=== PATIENT | male | born 1945 | race Two or more races ===

== ENCOUNTER 2022-12-10 04:50 | Inpatient (IN) | payer MEDICARE, OTHER ==
[~2022-12-10] VITALS: Ht 165.1 cm; Wt 77.1 kg
--- NOTE | 2022-12-10 05:04 | NUR ---
[id number] FRM HOME FOR GEN WEAKNESS AND GLFX2 , RECENT UTI. PRIMARILY SYRIAC SPEAKING. AXO3
--- NOTE | 2022-12-10 05:22 | NUR ---
IV STARTED ON R AC 20G
--- NOTE | 2022-12-10 05:22 | NUR ---
PT WHEEL TO CT VIA ANA M
[2022-12-10 06:11] LABS: BASOPHILS # (AUTO) 0.1 K/uL (0.0-0.2); BASOPHILS % (AUTO) 0.6 % (0.0-2.0); EOSINOPHILS % (AUTO) 0.1 % (0.0-6.0); HEMATOCRIT 38 % (39-51); HEMOGLOBIN 12.1 g/dL (13.5-17.5); LYMPHOCYTES # (AUTO) 2.1 K/uL (0.8-4.8); MEAN CORPUSCULAR HGB CONC 32 g/dl (31.0-36.0); MEAN CORPUSCULAR VOLUME 83 fL (80-96); MONOCYTES # (AUTO) 1.5 K/uL (0.1-1.30); MONOCYTES % (AUTO) 14.1 % (2.0-12.0); NEUTROPHILS # (AUTO) 6.8 K/uL (1.8-8.9); NEUTROPHILS % (AUTO) 65.2 % (43.0-81.0); PLATELET COUNT (AUTO) 298 K/uL (150-450); RED BLOOD CELL COUNT(AUTO) 4.51 MIL/uL (4.5-6.0); WHITE BLOOD COUNT (AUTO) 10.5 K/uL (4.3-11.0)
--- NOTE | 2022-12-10 06:20 | NUR ---
URINE COLLECTED AND SENT TO LAB
[2022-12-10 06:28] LABS: ALANINE AMINOTRANSFERASE 22 U/L (12-78); ALBUMIN 3.9 g/dL (3.4-5.0); ALKALINE PHOSPHATASE 111 U/L (46-116); ASPARTATE AMINOTRANSFERASE 23 U/L (15-37); BILIRUBIN,DIRECT 0.1 mg/dL (0.0-0.2); BILIRUBIN,TOTAL 0.4 mg/dL (0.2-1.0); CARBON DIOXIDE 26 mmol/L (21-32); CHLORIDE 97 mmol/L (98-107); CREATININE 0.9 mg/dL (0.6-1.3); GLUCOSE 220 mg/dL (74-106); POTASSIUM 3.6 mmol/L (3.5-5.1); SODIUM SERUM 136 mmol/L (136-145); TOTAL PROTEIN, SERUM 8.8 g/dL (6.4-8.2); UREA NITROGEN, BLOOD 15 mg/dL (7-18)
[2022-12-10 06:31] LABS: BILIRUBIN,URINE NEGATIVE (NEGATIVE); COLOR,URINE YELLOW (YELLOW); LEUKOCYTE ESTERASE ,URINE 2+ (NEGATIVE); NITRITE, URINE POSITIVE (NEGATIVE); PROTEIN,URINE 2+ mg/dl (NEGATIVE); UGLUCOSE NEGATIVE (NEGATIVE); UROBILINOGEN,URINE 0.2 EU/dL (0.2)
[2022-12-10 06:43] LABS: BACTERIA,URINE 3+ /HPF (None Seen); WBC,URINE TOO NUMEROUS TO COUN /HPF (0-3)
[2022-12-10 06:44] LABS: MUCUS,URINE Few /LPF (None Seen)
[2022-12-10] MEDS ORDERED: CEFTRIAXONE 1GM BAG (ER ONLY) 1 GM/50 ML PIGGYBACK IV ONE (07:00)
--- NOTE | 2022-12-10 07:15 | NUR ---
RECEVED PT FROM [facility] PT AWAKE AND ALERT NO SOB OR DISTTRESS
[2022-12-10] MEDS ORDERED: CEFTRIAXONE 1GM BAG (ER ONLY) 50 ML IV ONE (07:22)
--- NOTE | 2022-12-10 07:27 | NUR ---
COVID ANTIGEN SWAB COLLECTED AND SENT TO LAB
[2022-12-10] MEDS ORDERED: IV NS 0.9% 1,000 ML IV ONE (07:30)
--- NOTE | 2022-12-10 08:08 | NUR ---
AND DAUGHTER AT BEDSIDE. DAUGHTER - SANTIAGO
--- NOTE | 2022-12-10 08:39 | NUR ---
[facility] CALLED PHLEBOTOMIST PRN PAGED.
--- NOTE | 2022-12-10 08:42 | NUR ---
GOT BED 325-1 ADMITTING INFORMED.
--- NOTE | 2022-12-10 08:46 | NUR ---
WATING FOR ROOM
--- NOTE | 2022-12-10 09:08 | NUR ---
report given to DANNIELLE Nix for continuation of care
--- NOTE | 2022-12-10 09:12 | NUR ---
mrsa swab taken and sent to lab
[2022-12-10] MEDS ORDERED: ZOLPIDEM TARTRATE 5 MG TABLET PO PRN (10:00)
[2022-12-10] MEDS ORDERED: Z GUARD REMEDY 4 OZ OINT TP PRN (10:00)
[2022-12-10] MEDS ORDERED: MAG HYDROX/AL HYDROX/SIMETH 30 ML UDC PO PRN (10:00)
[2022-12-10] MEDS ORDERED: MAGNESIUM HYDROXIDE 30 ML UDC PO PRN (10:00)
[2022-12-10] MEDS ORDERED: ACETAMINOPHEN 325 MG TABLET PO PRN (10:00)
[2022-12-10] MEDS ORDERED: ONDANSETRON HCL/PF 4 MG/2 ML VIAL IVP PRN (10:00)
[2022-12-10] MEDS ORDERED: CEFTRIAXONE 1 G in IV D5W 50 ML IV SCH (10:00)
[2022-12-10] MEDS: IV NS 0.9% 1,000 ML IV PRN (10:31)
[2022-12-10] MEDS ORDERED: SITA100T PO (10:38)
[2022-12-10] MEDS ORDERED: METF-442 PO (10:38)
[2022-12-10] MEDS ORDERED: DULA0.75 SQ (10:38)
[2022-12-10] MEDS ORDERED: GEMF600T90 PO (10:38)
--- NOTE | 2022-12-10 10:44 | NUR ---
RN NOTES PATIENT WITH DIABETES MELLITUS, INFORMED CAFETERIA CLERK AISHA IF SHE WANTS PATIENT TO BE PLACED OM ACCUCHECK WITH INSULIN COVERAGE. SHE SAID TO PUT PATIENT ON MODERATE SCALE. ORDERED CARRY OUT.
[2022-12-10] MEDS ORDERED: DEXTROSE 50%-WATER 50 ML DISP.SYRIN IV PRN (11:00)
[2022-12-10] MEDS: LINAGLIPTIN 5 MG TABLET PO SCH (11:17)
[2022-12-10] MEDS: INSULIN REGULAR, HUMAN 100 UNIT/ML 3 ML VIAL SQ PRN ×2 (11:59→17:03)
[2022-12-10] MEDS: BLOOD SUGAR DIAGNOSTIC 1 EACH STRIP VI SCH ×3 (11:59→22:08)
--- NOTE | 2022-12-10 12:08 | NUR ---
MS THREADING MACHINE OPERATOR NOTES PT ADMITTED TO UNIT VIA RNEY AT 0940 WITH DIAGNOSIS OF UTI FAILED OUTPATIENT TX. PT IS A/O X2-3. FRENCH SPEAKING. ABLE TO MAKE NEEDS KNOWN, DENIES PAIN AT THIS TIME. PT ORIENTED TO STAFF, UNIT AND ROOM. V/S TAKEN AND RECORDED. PT ON ROOM AIR, TOLERATING WELL, BREATHING EVEN AND UNLABORED. SKIN IS INTACT. IV ACCESS ON RAC #20G INTACT AND PATENT, IVF OF NS @ 90ML/HR STARTED PER MD ORDER. LUNGS CLEAR ON AUSCULTATION. ABDOMEN SOFT, NON-TENDER WITH POSITIVE BOWEL SOUNDS PRESENT. SAFETY PRECAUTIONS IMPLEMENTED: BED IN LOWEST LOCKED POSITION, SIDE RAILS UP X3, CALL LIGHT AND TRAY TABLE WITHIN EASY REACH OF PT. WILL CONTINUE TO MONITOR PT.
[2022-12-10] MEDS: GEMFIBROZIL 600 MG TABLET PO SCH (16:19)
--- NOTE | 2022-12-10 18:33 | NUR ---
MS RN CLOSING NOTES PT IN BED AWaKE AND RESTING AT SEMI-MAZA'S POSITION. A/O X2-3. MALDIVIAN SPEAKING WITH PERIODS OF FORGETFULNESS NOTED. ON ROOM AIR, TOLERATING WELL, BREATHING EVEN AND UNLABORED, NO ACUTE DISTRESS NOTED. IV ACCESS ON RAC #20G INTACT WITH IVF OF NS @ 90ML/HR INFUSING WELL, NO S/S OF INFILTRATION NOTED. ALL NEEDS AND CARE PROVIDED WELL. SAFETY PRECAUTIONS KEPT IN PLACE: BED IN LOWEST LOCKED POSITION, SIDE-RAILS UP X3, CALL LIGHT AND TRAY TABLE WITHIN EASY REACH OF PT. WILL ENDORSE JENNY TO CONSTITUTIONAL LAW PROFESSOR NURSE.
--- NOTE | 2022-12-10 19:45 | NUR ---
RN Opening Notes Received pt in bed, awake, laying in bed comfortably. AOx3, able to make needs known. On RA and tolerating well. No SOB noted. No s/sx of respiratory distress noted. IV access in RAC #20G running NS @ 90 mL/hr. Safety precautions in place: bed in lowest, locked position, siderails upX2, and brakes on. Table and call light within reach. All needs met at this time.
[2022-12-10 20:00] VITALS: BP 106/111
[2022-12-10] MEDS: *INSULIN REGULAR(HUMULIN R)HUM 100 UNIT/ML VIAL SQ PRN (22:11)
[2022-12-11] MEDS: IV NS 0.9% 1,000 ML IV PRN (00:50)
[2022-12-11] MEDS: BLOOD SUGAR DIAGNOSTIC 1 EACH STRIP VI SCH ×4 (06:32→22:00)
[2022-12-11] MEDS: INSULIN REGULAR, HUMAN 100 UNIT/ML 3 ML VIAL SQ PRN ×3 (06:35→17:11)
--- NOTE | 2022-12-11 06:42 | NUR ---
RN Closing Notes Pt in bed, asleep, awakens to verbal stimuli. AOx3, able to make needs known. On RA and tolerating well. No SOB noted. No s/sx of respiratory distress noted. IV access in RAC #20G running NS @ 90 mL/hr. All orders carried out. All needs met. Pt kept clean and dry. Safety precautions in place: bed in lowest, locked position, siderails upX2, and brakes on. Table and call light within reach. Will endorse to oncoming shift for JENNY.
[2022-12-11 06:52] LABS: EOSINOPHILS % (AUTO) 0.1 % (0.0-6.0); HEMOGLOBIN 10.7 g/dL (13.5-17.5); WHITE BLOOD COUNT (AUTO) 9.7 K/uL (4.3-11.0)
[2022-12-11 06:59] LABS: BASOPHILS % (AUTO) 0.4 % (0.0-2.0); HEMATOCRIT 32 % (39-51); LYMPHOCYTES # (AUTO) 1.6 K/uL (0.8-4.8); LYMPHOCYTES % (AUTO) 16.3 % (20.0-44.0); MEAN CORPUSCULAR HGB CONC 33 g/dl (31.0-36.0); MEAN CORPUSCULAR VOLUME 82 fL (80-96); MONOCYTES # (AUTO) 1.3 K/uL (0.1-1.30); MONOCYTES % (AUTO) 13.5 % (2.0-12.0); NEUTROPHILS # (AUTO) 6.8 K/uL (1.8-8.9); NEUTROPHILS % (AUTO) 69.7 % (43.0-81.0); PLATELET COUNT (AUTO) 247 K/uL (150-450); RED BLOOD CELL COUNT(AUTO) 3.91 MIL/uL (4.5-6.0)
[2022-12-11 07:12] LABS: CALCIUM, SERUM 8.8 mg/dL (8.5-10.1); CREATININE 0.7 mg/dL (0.6-1.3); MAGNESIUM 1.7 mg/dL (1.8-2.4); PHOSPHORUS 2.5 mg/dL (2.5-4.9); POTASSIUM 3.1 mmol/L (3.5-5.1)
[2022-12-11 08:08] VITALS: BP 127/71
[2022-12-11] MEDS: LINAGLIPTIN 5 MG TABLET PO SCH (08:24)
[2022-12-11] MEDS: GEMFIBROZIL 600 MG TABLET PO SCH ×2 (08:24→16:14)
[2022-12-11] MEDS: APIXABAN 5 MG TABLET PO SCH ×2 (08:25→16:17)
[2022-12-11] MEDS: CEFTRIAXONE 1 G in IV D5W 50 ML IV SCH (08:29)
--- NOTE | 2022-12-11 09:46 | NUR ---
RECEIVED Pt IN BED SLEEPING PEACEFULLY EASY TO AROUSE, PT IS A&O x3, PT IV RA SITE IS INTACT BI-LUMEN FLUSHING WELL NO INFILTRATION NOTED - NS SALINE RUNNING ON 20 GAUGE IV RA , PT IS ABLE TO MAKE ALL NEEDS KNOWN PASHTO SPEAKING FLUENT SOME NAMIBIAN NOTED, . NO SOB, NO RESP DISTRESS NOTED, PT HAD ONE LARGE BM SOLID FIRM, ABLE TO AMBULATE WITH ONE PERSON ASSIST, ALL SAFETY MEASURES IN PLACE, BED WHEELS LOCKED BED LOW TO FLOOR, CALL LIGHT IN PLACE.
[2022-12-11] MEDS ORDERED: MAGNESIUM OXIDE 400 MG TABLET PO ONE (10:30)
[2022-12-11] MEDS: POTASSIUM CHLORIDE 20 MEQ TAB.PRT.SR PO SCH ×2 (10:47→11:47)
[2022-12-11 16:35] LABS: BAND % (MANUAL) 1 % (0.0-5.0); EOSINOPHILS % (MANUAL) 2 % (0-4); LYMPHOCYTES % (MANUAL) 16 % (16-48); MONOCYTES % (MANUAL) 9 % (0-11.0); NEUTROPHILS % (MANUAL) 72 (42-76)
[2022-12-11 16:40] VITALS: BP 136/76
--- NOTE | 2022-12-11 19:30 | NUR ---
RN ENDING NOTES PT A/O X 3 ABLE TO MAKE NEEDS KNOWN, COMPLIANT DURING DAY SHIFT WITH ALL CARE, BS MONITORED AND GIVEN INSULIN ACCORDING TO SLIDING SCALE, NO ADVERSE SIDE EFFECTS NOTED TO THE ABT GIVEN, IV IS INTACT PATENT AND FLUSHING WELL GAUGE # 20 R A/C, PT ABLE TO AMBULATE WITH ONE PERSON ASSIST TO REST ROOM FOR BM OTHERWISE USING URINAL AT BED SIDE, COMPRESSION APPLIED TO BILATERAL LOWER EXTREMITIES, BED LOW TO FLOOR ALL WHEELS LOCKED, NO SOB, NO DISTRESS NOTED, STABLE CONDITION AND RESTING IN BED AT THIS TIME. CALL LIGHT IN REACH
--- NOTE | 2022-12-11 19:33 | NUR ---
MS RN OPENING NOTES: RECEIVED PATIENT AWAKE IN BED, BED IN LOW POSITION CALL LIGHTS WITHIN REACH, NO COMPLAIN OF PAIN AND DISCOMFORT AT THIS TIME, ON ROOM AIR SATURATING WELL, PATIENT IS A/O X3 FORGETFUL, REMIND PATIENT TO USE CALL LIGHTS WHEN NEEDED ASSISTANCE, ABLE TO MAKE NEEDS KNOWN, ESTONIAN SPEAKER, IV LINE AT RAC#20 WITH ONGOING 0.9NSS@90ML/HR INFUSING WELL, PATIENT KEPT CLEAN AND DRY ALL NEEDS MET WILL CONTINUE TO MONITOR.
[2022-12-11 20:00] VITALS: BP 132/74
[2022-12-11 20:14] VITALS: BP 132/74
[2022-12-11] MEDS: *INSULIN REGULAR(HUMULIN R)HUM 100 UNIT/ML VIAL SQ PRN (22:50)
[2022-12-12] MEDS: IV NS 0.9% 1,000 ML IV PRN (06:10)
--- NOTE | 2022-12-12 06:15 | NUR ---
MS RN CLOSING NOTES: PATIENT SLEEP IN BED COMFORTABLY, BED IN LOW POSITION CALL LIGHTS WITHIN REACH, NO COMPLAIN OF PAIN AND DISCOMFORT AT THIS TIME, ON ROOM AIR SATURATING WELL,NO SOB WAS OBSERVED, IV LINE AT RAC WITH ONGOING 0.9NSS@90ML/HR INFUSING WELL, PATIENT KEPT CLEAN AND DRY ALL NEEDS MET ENDORSE TO INCOMING SHIFT.
[2022-12-12] MEDS: BLOOD SUGAR DIAGNOSTIC 1 EACH STRIP VI SCH ×4 (06:33→21:52)
[2022-12-12] MEDS: INSULIN REGULAR, HUMAN 100 UNIT/ML 3 ML VIAL SQ PRN ×3 (06:33→17:21)
--- NOTE | 2022-12-12 06:33 | NUR ---
RN NOTES: BLOOD SUGAR 170/ 3 UNITS INSULIN GIVEN PER SLIDING SCALE.
[2022-12-12 06:42] LABS: BASOPHILS % (AUTO) 0.4 % (0.0-2.0); EOSINOPHILS % (AUTO) 1.3 % (0.0-6.0); HEMATOCRIT 30 % (39-51); HEMOGLOBIN 9.9 g/dL (13.5-17.5); LYMPHOCYTES # (AUTO) 1.5 K/uL (0.8-4.8); LYMPHOCYTES % (AUTO) 25.2 % (20.0-44.0); MEAN CORPUSCULAR HGB CONC 33 g/dl (31.0-36.0); MEAN CORPUSCULAR VOLUME 81 fL (80-96); MONOCYTES # (AUTO) 0.9 K/uL (0.1-1.30); NEUTROPHILS # (AUTO) 3.4 K/uL (1.8-8.9); NEUTROPHILS % (AUTO) 57.1 % (43.0-81.0); PLATELET COUNT (AUTO) 240 K/uL (150-450); RED BLOOD CELL COUNT(AUTO) 3.71 MIL/uL (4.5-6.0); WHITE BLOOD COUNT (AUTO) 5.9 K/uL (4.3-11.0)
--- NOTE | 2022-12-12 07:00 | NUR ---
RN OPENING NOTE- PT AWAKE IN BED, AOX3, DENIES PAIN, FORGETFUL, GERMAN SPEAKER, IV LINE AT RAC#20 NS@90ML / HR INFUSING WELL, ON ROOM AIR SATURATING WELL, PATIENT KEPT CLEAN AND DRY ALL NEEDS MET WILL CONTINUE TO MONITOR / ASSIST
[2022-12-12 07:09] LABS: CALCIUM, SERUM 8.6 mg/dL (8.5-10.1); CREATININE 0.6 mg/dL (0.6-1.3); MAGNESIUM 1.8 mg/dL (1.8-2.4); POTASSIUM 3.3 mmol/L (3.5-5.1)
[2022-12-12] MEDS: CEFTRIAXONE 1 G in IV D5W 50 ML IV SCH (07:58)
[2022-12-12 08:00] VITALS: BP 127/61
[2022-12-12] MEDS: LINAGLIPTIN 5 MG TABLET PO SCH (08:45)
[2022-12-12] MEDS: GEMFIBROZIL 600 MG TABLET PO SCH ×2 (08:45→17:19)
[2022-12-12] MEDS: APIXABAN 5 MG TABLET PO SCH ×2 (08:46→17:19)
[2022-12-12] MEDS ORDERED: POTASSIUM CHLORIDE 20 MEQ POWDER PACKET PO ONE (11:30)
[2022-12-12 11:50] LABS: BAND % (MANUAL) 2 % (0.0-5.0); EOSINOPHILS % (MANUAL) 3 % (0-4); LYMPHOCYTES % (MANUAL) 22 % (16-48); MONOCYTES % (MANUAL) 10 % (0-11.0); NEUTROPHILS % (MANUAL) 63 (42-76)
[2022-12-12 16:00] VITALS: BP 138/80
--- NOTE | 2022-12-12 18:19 | NUR ---
RN CLOSING NOTE- - UNCHANGED, PT AWAKE IN BED, AOX3, DENIES PAIN, FORGETFUL, DIVEHI SPEAKER, IV LINE AT RAC#20 NS@90ML / HR INFUSING WELL, ON ROOM AIR SATURATING WELL, PATIENT KEPT CLEAN AND DRY ALL NEEDS MET WILL CONTINUE TO MONITOR / ASSIST
--- NOTE | 2022-12-12 19:30 | NUR ---
RN Opening Notes Received pt laying in bed, on phone. AOx3, able to make needs known. On RA and tolerating well. No SOB noted. No s/sx of respiratory distress noted. IV access in RAC #20G running NS @ 90 mL/hr. Safety precautions in place: bed in lowest, locked position, siderails upX2, and brakes on. Table and call light within reach. All needs met at this time.
[2022-12-12 20:00] VITALS: BP 127/91
[2022-12-12] MEDS: *INSULIN REGULAR(HUMULIN R)HUM 100 UNIT/ML VIAL SQ PRN (21:54)
[2022-12-13 05:52] LABS: BASOPHILS % (AUTO) 0.3 % (0.0-2.0); EOSINOPHILS % (AUTO) 2.8 % (0.0-6.0); HEMATOCRIT 31 % (39-51); HEMOGLOBIN 10.3 g/dL (13.5-17.5); LYMPHOCYTES # (AUTO) 1.7 K/uL (0.8-4.8); LYMPHOCYTES % (AUTO) 27.8 % (20.0-44.0); MEAN CORPUSCULAR HGB CONC 33 g/dl (31.0-36.0); MEAN CORPUSCULAR VOLUME 81 fL (80-96); MONOCYTES % (AUTO) 17.1 % (2.0-12.0); NEUTROPHILS # (AUTO) 3.1 K/uL (1.8-8.9); PLATELET COUNT (AUTO) 286 K/uL (150-450); RED BLOOD CELL COUNT(AUTO) 3.83 MIL/uL (4.5-6.0)
[2022-12-13 06:04] LABS: CALCIUM, SERUM 9.3 mg/dL (8.5-10.1); CREATININE 0.6 mg/dL (0.6-1.3); POTASSIUM 3.6 mmol/L (3.5-5.1)
[2022-12-13] MEDS: BLOOD SUGAR DIAGNOSTIC 1 EACH STRIP VI SCH ×5 (06:31→21:20)
[2022-12-13] MEDS: INSULIN REGULAR, HUMAN 100 UNIT/ML 3 ML VIAL SQ PRN ×3 (06:33→16:40)
--- NOTE | 2022-12-13 06:49 | NUR ---
RN Closing Notes Pt laying in bed, awake. AOx3, able to make needs known. On RA and tolerating well. No SOB noted. No s/sx of respiratory distress noted. IV access in RAC #20G running NS @ 90 mL/hr. All orders carried out. All needs met. Pt kept clean and dry. Safety precautions in place: bed in lowest, locked position, siderails upX2, and brakes on. Table and call light within reach. Will endorse to oncoming shift for JENNY.
--- NOTE | 2022-12-13 07:15 | NUR ---
RN Opening Notes Received pt awake in bed, AOx3, able to make needs known. Macedonian speaking, ASP NET MVC DEVELOPER as campaign marketing manager. On RA and tolerating well. No pain/SOB noted. No s/sx of respiratory distress noted. IV access in RAC #20G running NS @ 90 mL/hr. Safety precautions in place: bed in lowest, locked position, siderails upX2, and brakes on. Table and call light within reach. will continue to monitor the patient
[2022-12-13 08:00] VITALS: BP 145/73
[2022-12-13] MEDS: CEFTRIAXONE 1 G in IV D5W 50 ML IV SCH (08:40)
[2022-12-13] MEDS: LINAGLIPTIN 5 MG TABLET PO SCH (08:41)
[2022-12-13] MEDS: GEMFIBROZIL 600 MG TABLET PO SCH ×2 (08:41→16:28)
[2022-12-13] MEDS: APIXABAN 5 MG TABLET PO SCH ×2 (08:55→16:28)
[2022-12-13 15:40] LABS: EOSINOPHILS % (MANUAL) 5 % (0-4); LYMPHOCYTES % (MANUAL) 24 % (16-48); MONOCYTES % (MANUAL) 7 % (0-11.0); NEUTROPHILS % (MANUAL) 64 (42-76)
[2022-12-13 16:00] VITALS: BP 118/72
--- NOTE | 2022-12-13 18:38 | NUR ---
RN Closing Notes Pt laying in bed, awake. AOx3, able to make needs known. On RA and tolerating well. No pain, SOB noted. No s/sx of respiratory distress noted. IV access in RAC #20G running NS @ 90 mL/hr. All orders carried out. All needs met. Pt kept clean and dry. Safety precautions in place: bed in lowest, locked position, siderails upX2, and brakes on. Table and call light within reach. Will endorse to oncoming news videographer nurse for JENNY.
[2022-12-13 20:00] VITALS: BP 134/70
--- NOTE | 2022-12-13 20:58 | NUR ---
RN MS OPENING NOTES RECEIVED PATIENT IN BED, AWAKE AND COHERENT ABLE TO VERBALIZED NEED. ON MODERATE HIGH BACK REST POSITION. A/O X 3 JAPANESE SPEAKING. NO S/S OF PAIN OR DISCOMFORT AT THIS TIME. WITH IV ACCESS AT RAC#20G WITH NS AT 9MMLNHR INFUSING WELL. ON CBG MONITORING. PATIENT IS ON BEDREST AND USES URINAL ABLE TO SWALLOW WHOLE PILL. [facility] BED ON LOWER LOCKED POSITION KEPT SIDE RAIL SUP X 3 ALL THE TIME. KEPT CALL LIGHT WITHIN AT REACH WILL CONTINUE TO MONITOR JENNY.
[2022-12-13] MEDS ORDERED: NITROFURANTOIN/MONOHYDRATE MACROCRYSTALS 100 MG CAPSULE PO SCH (21:00)
[2022-12-13] MEDS: MEROPENEM 1 G in IV NS 0.9% 100 ML IV SCH (21:06)
[2022-12-13] MEDS: *INSULIN REGULAR(HUMULIN R)HUM 100 UNIT/ML VIAL SQ PRN (21:19)
[2022-12-14] MEDS: IV NS 0.9% 1,000 ML IV PRN (01:59)
[2022-12-14] MEDS: MEROPENEM 1 G in IV NS 0.9% 100 ML IV SCH ×3 (04:54→21:06)
[2022-12-14] MEDS: BLOOD SUGAR DIAGNOSTIC 1 EACH STRIP VI SCH ×4 (05:52→21:19)
[2022-12-14] MEDS: INSULIN REGULAR, HUMAN 100 UNIT/ML 3 ML VIAL SQ PRN ×4 (05:53→21:21)
[2022-12-14 05:58] LABS: BASOPHILS % (AUTO) 0.6 % (0.0-2.0); EOSINOPHILS % (AUTO) 4.1 % (0.0-6.0); HEMATOCRIT 31 % (39-51); HEMOGLOBIN 10.4 g/dL (13.5-17.5); LYMPHOCYTES % (AUTO) 31.6 % (20.0-44.0); MEAN CORPUSCULAR HGB CONC 34 g/dl (31.0-36.0); MEAN CORPUSCULAR VOLUME 81 fL (80-96); MONOCYTES # (AUTO) 1.1 K/uL (0.1-1.30); MONOCYTES % (AUTO) 17.3 % (2.0-12.0); NEUTROPHILS % (AUTO) 46.4 % (43.0-81.0); PLATELET COUNT (AUTO) 321 K/uL (150-450); RED BLOOD CELL COUNT(AUTO) 3.83 MIL/uL (4.5-6.0); WHITE BLOOD COUNT (AUTO) 6.4 K/uL (4.3-11.0)
[2022-12-14 06:16] LABS: CALCIUM, SERUM 9.1 mg/dL (8.5-10.1); CREATININE 0.7 mg/dL (0.6-1.3); MAGNESIUM 1.9 mg/dL (1.8-2.4); PHOSPHORUS 3.9 mg/dL (2.5-4.9); POTASSIUM 3.7 mmol/L (3.5-5.1)
--- NOTE | 2022-12-14 06:24 | NUR ---
RN MS CLOSING NOTES PATIENT IS IN BED , AWAKE AND COHERENT ABLE TO VERBALIZED NEED. ON MODERATE HIGH BACK REST POSITION. A/O X 3 SYRIAC SPEAKING. NO S/S OF PAIN OR DISCOMFORT AT THIS TIME. WITH IV ACCESS AT RAC#20G WITH NS AT 9MMLNHR INFUSING WELL. ON CBG MONITORING. PATIENT IS ON BEDREST AND USES URINAL ABLE TO SWALLOW WHOLE PILL.PATIENT WILL BE DISCHARGE IF THE URINE CULTURE RESULTS IS AVAILABLE. KEPT BED ON LOWER LOCKED POSITION KEPT SIDE RAILS UP X 3 ALL THE TIME. KEPT CALL LIGHT WITHIN AT REACH. WILL ENDORSED TO AM SHIFT FOR JENNY. Addendum: 12/14/22 at 0650 by Nithya Coy RN RN NOTES NOTED IV ACCESS WITH REDNESS AND SWELLING. REMOVED IV LINE ICED PACKED AND PRESSIRE DRESSING APPLIED. CHARGE NURSE INFORM NO INSERTION OF IV LINE BECAUSE PATIENT IS FOR DISCHARGE TODAY.
--- NOTE | 2022-12-14 07:20 | NUR ---
RN Opening Notes Received pt awake in bed, AOx3, able to make needs known. Italian speaking, CHIP FRIER as lang interpreter. On RA and tolerating well. No pain/SOB noted. No s/sx of respiratory distress noted. No IV access, recently removed per night order selector nurse. Safety precautions in place: bed in lowest, locked position, siderails upX2, and brakes on. Table and call light within reach. will continue to monitor the patient
[2022-12-14 07:56] LABS: EOSINOPHILS % (MANUAL) 3 % (0-4); LYMPHOCYTES % (MANUAL) 31 % (16-48); MONOCYTES % (MANUAL) 17 % (0-11.0); NEUTROPHILS % (MANUAL) 49 (42-76)
[2022-12-14] MEDS: GEMFIBROZIL 600 MG TABLET PO SCH ×2 (08:20→16:26)
[2022-12-14] MEDS: LINAGLIPTIN 5 MG TABLET PO SCH (08:20)
[2022-12-14] MEDS: APIXABAN 5 MG TABLET PO SCH ×2 (08:22→16:28)
[2022-12-14 08:30] VITALS: BP 131/70
--- NOTE | 2022-12-14 10:58 | NUR ---
Midline requested by LOGAN Smith, awaiting placement. Pt is pending DC-home to continue for 1 week IV abx as ordered
[2022-12-14] MEDS ORDERED: Medication Not On Formulary EA (Dulaglutide (Trulicity) 0.75 MG) SQ SCH (11:00)
[2022-12-14 16:12] VITALS: BP 128/63
--- NOTE | 2022-12-14 18:47 | NUR ---
RN Closing Notes Pt laying in bed, awake. AOx3, able to make needs known. On RA and tolerating well. No pain, SOB noted. No s/sx of respiratory distress noted. IV Midline access in LISA #G20/10 midline with ease in the left basilic vein, good non pulsatile blood return, flushes well, secured with interlock device inserted by DANNIELLE Mayo, running NS @ 90 mL/hr. All orders carried out. All needs met. Pt kept clean and dry. Safety precautions in place: bed in lowest, locked position, siderails upX2, and brakes on. Table and call light within reach. Will endorse to oncoming household coordinator nurse for JENNY.
--- NOTE | 2022-12-14 19:00 | NUR ---
RN OPENING NOTE RECEIVED PT ON BED. PT IS AWAKE, A/OX3, MARTINIQUAIS SPEAKING. PT IS ON RA, TOLERATING WELL, BREATHING EVEN AND UNLABORED @THIS TIME. PT IV ACCESS PRESENT ON LEFT UPPER ARM MIDLINE #20G RUNNING NS @90MLS/HR, PATENT , INTACT AND FLUSHES WITH NO S&SX OF INFILTRATION @ SITE NOTED. PT IS CONTINENT, URINAL ON BEDSIDE. SAFETY MEASURES IS IN PLACE. BED AT ITS LOWEST AND LOCKED POSITION. SIDE RAILS UP X 2. BED TABLE AND CALL LIGHT IS EASY REACH. BED ALARM IS ON. WILL CONTINUE TO MONITOR PT ACCORDINGLY.
[2022-12-14 20:00] VITALS: BP 133/76
[2022-12-14 21:00] VITALS: BP 133/76
[2022-12-15] MEDS: IV NS 0.9% 1,000 ML IV PRN (00:08)
[2022-12-15] MEDS: MEROPENEM 1 G in IV NS 0.9% 100 ML IV SCH ×3 (04:03→19:08)
[2022-12-15] MEDS: BLOOD SUGAR DIAGNOSTIC 1 EACH STRIP VI SCH ×3 (05:33→16:58)
[2022-12-15] MEDS: INSULIN REGULAR, HUMAN 100 UNIT/ML 3 ML VIAL SQ PRN ×3 (05:40→16:58)
--- NOTE | 2022-12-15 06:31 | NUR ---
RN CLOSING NOTE PT IS ASLEEP AND RESTING COMFORTABLY IN BED. A/OX3, RESPONSIVE AND FOLLOWS VERBAL COMMAND. PT IS ON RA, WITH NO RESPIRATORY DISTRESS NOTED @THIS TIME. PT IV ACCESS PRESENT ON LEFT UPPER ARM MIDLINE #20G RUNNING NS @90MLS/HR, PATENT, INTACT AND FLUSHES WITH NO S&SX OF INFILTRATION @ SITE NOTED. PT IS CONTINENT, URINAL ON BEDSIDE. SAFETY MEASURES IS IN PLACE. BED AT ITS LOWEST AND LOCKED POSITION. SIDE RAILS UP X 2. BED TABLE AND CALL LIGHT IS EASY REACH. BED ALARM IS ON. WILL ENDORSE TO NEXT SHIFT FOR CONTINUITY OF CARE.
[2022-12-15 07:00] VITALS: BP 138/80
--- NOTE | 2022-12-15 07:31 | NUR ---
MS RN OPENING NOTE (HI) Received pt awake in bed, A/O x 3, able to make needs known. Swedish speaking, FURNACE STOCK INSPECTOR as antichecking iron worker. On RA and tolerating well. No pain/SOB noted. No s/sx of respiratory distress noted. Patient has IV acces to # 20 gauge PIV to left hand with IV fluid of NS infusing well @ 100 mLs/hr. IV dressing is clean, dry, intact , catheter patent. Safety precautions in place: bed in lowest, locked position, siderails up X 2, and brakes on. Table and call light within reach. will continue to care for and monitor the patient per hospitalist's POC. Addendum: 12/15/22 at 0840 by KI WASHINGTON RN Correction: Patient has IV access to his left upper arm (not left hand), # 18 gauge midline IV catheter that is patent infusing NS @ 90 mLs/hr with a clean, dry, intact, midline dressing with biopatch.
[2022-12-15] MEDS: GEMFIBROZIL 600 MG TABLET PO SCH ×2 (08:59→16:58)
[2022-12-15] MEDS: LINAGLIPTIN 5 MG TABLET PO SCH (08:59)
[2022-12-15] MEDS: APIXABAN 5 MG TABLET PO SCH ×2 (09:00→17:00)
[2022-12-15] MEDS ORDERED: ERTA1VIA4 IV (09:46)
[2022-12-15 16:22] VITALS: BP 124/79
--- NOTE | 2022-12-15 19:04 | NUR ---
MS RN CLOSING NOTE (DAYSHIFT) Pt laying in bed, awake. A/O x 3, able to make needs known. On RA and tolerating well. No pain, SOB noted. No s/sx of respiratory distress noted. IV Midline access in LISA # 18 gauge midline in the left basilic vein, good non pulsatile blood return, flushes well, infusing NS @ 90 mL/hr. All orders carried out. Last dose of IV antibiotic to be given at 20:00 hours before discharge to home at 21:00 hours tonight. All needs met. Pt kept clean and dry. Safety precautions in place: bed in lowest, locked position, siderails up X 2, and brakes on. Table and call light within reach. Will endorse to oncoming loans consultant nurse for JENNY.
--- NOTE | 2022-12-15 19:30 | NUR ---
MS RN OPENING NOTE Pt laying in bed, awake. A/O x 3, able to make needs known. On RA and tolerating well. No pain, SOB noted. No s/sx of respiratory distress noted. IV Midline access in LISA # 18 gauge midline in the left basilic vein, flushes well, no signs of infection infusing NS @ 90 mL/hr. patient is for discharge. exit care is done. Safety precautions in place: bed in lowest, locked position, siderails up X 2, and brakes on. Table and call light within reach.
--- NOTE | 2022-12-15 21:30 | NUR ---
MS RN NOTES EXIT CARE IS DONE. PATIENT INFORMATION FOLDER IS GIVEN TO THE PATIENT. EXIT INSTRUCTIONS IS DISCUSSED WITH THE PATIENT. PATIENT VERBALIZES UNDERSTANDING. RN USED [employer] BEAM BUILDER HELPER TO COMMUNICATE WITH THE PATIENT.
--- NOTE | 2022-12-15 21:33 | NUR ---
MS RN NOTES PATIENT WILL BE DISCHARGE WITH HIS LEFT UPPER ARM MIDLINE SINCE PATIENT WILL CONTINUE HIS IV ANTIBIOTICS AT HOME WITH [facility]. MADE SURE MIDLINE IS CLEAN, PATENT AND INTACT. NO SIGNS OF INFECTION NOTED.
--- NOTE | 2022-12-15 22:25 | NUR ---
MS RN NOTES PATIENT WAS INSTRUCTED DURING EXIT CARE TO WAIT FOR THE AMBULANCE TO PICK HIM UP TO TRANSPORT HIM HOME. PATIENT STILL LEFT BY HIMSELF WITHOUT EVEN NOTIFYING THE STAFF. RN CALLED THE FAMILY TO LET THEM KNOW. AND AFTER 20 MINUTES RN CALLED THE FAMILY AGAIN TO CHECK FAMILY CONFIRMED PATIENT IS HOME SAFE PER PATIENT HE RIDE AND UBER GOING HOME.
== END 2022-12-15 22:30 | disposition home health service (06) | DRG 689 ==
LOC: ER 04:52 → MED 08:54
PROVIDERS: ADMIT Nurse Practitioner Acute Care; ATTEND Registered Nurse
PROC: 05HC33Z Insertion of Infusion Device into Left Basilic Vein, Percutaneous Approach (ICD-10-PCS; principal; 2022-12-14)
DX: N39.0 Urinary tract infection, site not specified (principal); G93.41 Metabolic encephalopathy; Z16.12 Extended spectrum beta lactamase (ESBL) resistance; E11.9 Type 2 diabetes mellitus without complications; I10 Essential (primary) hypertension; Z79.84 Long term (current) use of oral hypoglycemic drugs; Z79.899 Other long term (current) drug therapy; W19.XXXA Unspecified fall, initial encounter; Y92.9 Unspecified place or not applicable; B96.20 Unspecified Escherichia coli [E. coli] as the cause of diseases classified elsewhere; B96.89 Other specified bacterial agents as the cause of diseases classified elsewhere
CPT/HCPCS: 36410; 36415; 70450-TC; 71045-TC; 80048-TC; 80076-TC; 81001; 82962-TC; 83735-TC; 84100-TC; 84484-TC; 85025-TC; 85730-TC; 87081-TC; 87086-TC; 97112-TC; 97116-TC; 97530-TC; A4223; C9803; G0378; J0696; J1815; J2185; J7030; J7060

== ENCOUNTER 2025-04-19 13:01 | Emergency (ER) | payer MEDICARE, MEDICAID ==
[~2025-04-19] VITALS: Ht 154.9 cm; Wt 76.7 kg
[~2025-04-19 13:01] MED LIST: DULA0.75 SQ; ERTA1VIA4 IV; GEMF600T90 PO; METF-442 PO; SITA100T PO
[2025-04-19 13:27] LABS: PLATELET COUNT (AUTO) 239 K/uL (150-450); RED BLOOD CELL COUNT(AUTO) 4.36 MIL/uL (4.5-6.0); RED CELL DISTRIBUTION WIDTH 14.2 % (11.5-15.0); WHITE BLOOD COUNT (AUTO) 8.2 K/uL (4.3-11.0)
[2025-04-19 13:39] LABS: CALCIUM, SERUM 9.6 mg/dL (8.5-10.1); CREATININE 0.7 mg/dL (0.6-1.3); SODIUM SERUM 138.0 mmol/L (136-145); UREA NITROGEN, BLOOD 12.0 mg/dL (7-18)
[2025-04-19 14:04] LABS: INR 1.0 (0.91-1.10)
[2025-04-19] MEDS ORDERED: CYAN500T64 PO (14:15)
[2025-04-19] MEDS ORDERED: ASCO100T12 PO (14:15)
[2025-04-19] MEDS: ASPIRIN 325 MG TABLET PO ONE (14:30)
[2025-04-19] MEDS ORDERED: ASPIRIN 325 MG TABLET ONE (14:44)
[2025-04-19 19:22] VITALS: BP 126/84; TEMP 98; O2SAT 99
== END 2025-04-19 19:22 | disposition short-term general hospital (02) ==
LOC: ER 13:03
DX: I63.9 Cerebral infarction, unspecified (principal); E11.65 Type 2 diabetes mellitus with hyperglycemia; I10 Essential (primary) hypertension; Z79.84 Long term (current) use of oral hypoglycemic drugs; Z87.448 Personal history of other diseases of urinary system; Z87.438 Personal history of other diseases of male genital organs; Z20.822 Contact with and (suspected) exposure to COVID-19
CPT/HCPCS: 36415; 70450-TC; 80048-TC; 82962-TC; 85025-TC; 85730-TC